=== PATIENT | male | born 1990 | race Caucasian/White ===

== ENCOUNTER 2018-10-12 08:00 | Inpatient (IN) | payer OTHER ==
[~2018-10-12] VITALS: Ht 175.3 cm; Wt 81.6 kg
[2018-10-15] MEDS ORDERED: PROPOFOL 50 ML ONE ×2 (08:46→11:45)
[2018-10-15] MEDS ORDERED: MIDAZOLAM 1 MG/ML, 2ML ONE (08:46)
[2018-10-15] MEDS ORDERED: FENTANYL PF 250 MCG/5ML ONE (08:46)
[2018-10-15] MEDS ORDERED: GABAPENTIN 300 MG CAPSULE PO ONE ×2 (09:30→10:00)
[2018-10-15] MEDS ORDERED: ACETAMINOPHEN 500 MG TABLET PO ONE (09:30)
[2018-10-15] MEDS ORDERED: LACTATED RINGERS 1,000 ML IV SCH (10:00)
[2018-10-15] MEDS ORDERED: LIDOCAINE-MPF 1%, 2ML INFIL ONE (10:00)
[2018-10-15] MEDS ORDERED: PLEASE ENTER HEIGHT AND WEIGHT MC SCH (10:00)
[2018-10-15] MEDS ORDERED: PLEASE ENTER ALLERGIES MC SCH (10:00)
[2018-10-15] MEDS ORDERED: MUPI22OI2 NAS (10:23)
[2018-10-15] MEDS ORDERED: GABA300C10 PO (10:23)
[2018-10-15] MEDS ORDERED: INSULIN PUMP SQ (10:23)
[2018-10-15] MEDS ORDERED: DIVA500T2 PO ×2 (10:23)
[2018-10-15 10:32] VITALS: BP 140/97
[2018-10-15] MEDS ORDERED: LORazepam 2 MG/ML, 1ML IVPush PRN (11:00)
[2018-10-15] MEDS ORDERED: MEPERIDINE/PF 25MG/0.5ML IVPush PRN (11:00)
[2018-10-15] MEDS ORDERED: HYDROmorphone 2 MG/ML, 1ML IVPush PRN (11:00)
[2018-10-15] MEDS ORDERED: METOCLOPRAMIDE 5 MG/ML, 2ML IV PRN (11:00)
[2018-10-15] MEDS ORDERED: OXYcodone 5 MG/5 ML ORAL.SOL UDC PO PRN (11:00)
[2018-10-15] MEDS ORDERED: NOVALOG INSULIN PUMP SQ-INSULIN (11:03)
[2018-10-15] MEDS ORDERED: KETAMINE 10 MG/ML, 20ML ONE (11:12)
[2018-10-15] MEDS ORDERED: CEFAZOLIN 1,000 MG ONE (11:12)
[2018-10-15] MEDS ORDERED: ONDANSETRON 2MG/ML, 2ML ONE (11:12)
[2018-10-15] MEDS ORDERED: SUCCINYLCHOLINE 20 MG/ML, 10ML ONE (11:12)
[2018-10-15] MEDS ORDERED: VANCOMYCIN 1,000 MG ONE (12:18)
[2018-10-15] MEDS ORDERED: EPINEPHRINE 1 MG/ML, 1ML ONE (12:18)
[2018-10-15] MEDS ORDERED: LIDOCAINE/PF 0.5% ,50ML ONE (12:18)
[2018-10-15] MEDS ORDERED: BUPIVACAINE/PF 0.25% ONE (12:18)
[2018-10-15] MEDS ORDERED: THROMBIN 5,000 UNIT VIAL TP ONE (12:18)
[2018-10-15] MEDS ORDERED: VANCOMYCIN 500 MG ONE (12:18)
[2018-10-15] MEDS: FENTANYL PF 100 MCG/2ML IV PRN ×2 (13:16→13:40)
[2018-10-15] MEDS ORDERED: FENTANYL PF 100 MCG/2ML ONE (13:18)
[2018-10-15] MEDS ORDERED: OXYcodone 5 MG/5 ML ORAL.SOL UDC ONE (13:18)
[2018-10-15] MEDS ORDERED: METHOCARBAMOL 1,000 MG in DEXTROSE 5% 100 ML IV ONE (13:30)
[2018-10-15] MEDS ORDERED: MEPERIDINE/PF 25MG/ML,1ML ONE (14:11)
[2018-10-15] MEDS ORDERED: DIPHENHYDRAMINE 50 MG CAPSULE PO PRN (15:30)
[2018-10-15] MEDS ORDERED: ONDANSETRON 2MG/ML, 2ML IV PRN (15:30)
[2018-10-15] MEDS ORDERED: METHOCARBAMOL 750 MG TABLET PO SCH (15:30)
[2018-10-15] MEDS ORDERED: DIPHENHYDRAMINE 50 MG/ML, 1ML IVPush PRN (15:30)
[2018-10-15] MEDS ORDERED: MAGNESIUM HYDROXIDE 8%, 30ML UDC PO PRN (15:30)
[2018-10-15] MEDS ORDERED: BISACODYL 10 MG SUPP PR PRN (15:30)
[2018-10-15] MEDS ORDERED: METHOCARBAMOL 750 MG TABLET PO PRN (15:30)
[2018-10-15] MEDS ORDERED: morphine SULFATE 10 MG/ML, 1ML IV PRN (15:30)
[2018-10-15] MEDS ORDERED: DIPHENHYDRAMINE 50 MG/ML, 1ML IM PRN (15:30)
[2018-10-15] MEDS ORDERED: PROMETHAZINE 25 MG/ML, 1ML IM PRN (15:30)
[2018-10-15] MEDS ORDERED: HYDROcodone/APAP 5/325 TABLET PO PRN (15:30)
[2018-10-15] MEDS ORDERED: DEXTROSE 4 GM TAB.CHEW PO PRN (16:00)
[2018-10-15] MEDS ORDERED: GLUCAGON 1 MG IM PRN (16:00)
[2018-10-15] MEDS ORDERED: DIVALPROEX SODIUM 1000 MG PO SCH (16:00)
[2018-10-15] MEDS ORDERED: PHARMACY INSTRUCTION MC PRN (16:00)
[2018-10-15] MEDS ORDERED: DEXTROSE 50%, 50ML SYRINGE IVPush PRN (16:00)
[2018-10-15] MEDS ORDERED: NOVALOG INSULIN PUMP SQ-INSULIN SCH (16:00)
[2018-10-15] MEDS: NS + 20MEQ KCL 1,000 ML IV SCH (18:24)
[2018-10-15] MEDS: CEFAZOLIN PMX 1GM/50ML 50 ML IVPB SCH (19:33)
[2018-10-15] MEDS: HYDROcodone/APAP 10/325 MG TABLET PO PRN ×2 (19:40→23:32)
[2018-10-15 20:07] VITALS: BP 137/92
[2018-10-15] MEDS: METHOCARBAMOL 750 MG in DEXTROSE 5% 100 ML IV SCH (20:59)
[2018-10-15] MEDS: SODIUM CHLORIDE FLUSH 10ML SYR IVF SCH (21:00)
[2018-10-15] MEDS ORDERED: DIVALPROEX SODIUM 1500 MG PO SCH (21:00)
[2018-10-15] MEDS ORDERED: GABAPENTIN 300 MG CAPSULE PO SCH (21:00)
[2018-10-15] MEDS ORDERED: TEMPLATE NON-FORMULARY MED. (Gabapentin** 600 MG) PO SCH (21:00)
[2018-10-15] MEDS ORDERED: DIVALPROEX 500 MG TABLET.DR HOMEMEDPO SCH (21:00)
[2018-10-15] MEDS: SENNA/DOCUSATE TABLET PO SCH (21:04)
[2018-10-15 23:34] VITALS: BP 139/95
[2018-10-16 01:58] VITALS: BP 151/105
[2018-10-16] MEDS: CEFAZOLIN PMX 1GM/50ML 50 ML IVPB SCH (03:38)
[2018-10-16] MEDS: HYDROcodone/APAP 10/325 MG TABLET PO PRN (03:38)
[2018-10-16 05:05] LABS: BASOPHILS # (AUTO) 0.02 x10^3/uL (0-0.1); BASOPHILS % (AUTO) 0 % (0-1); EOSINOPHILS # (AUTO) 0.07 x10^3/uL (0-0.4); EOSINOPHILS % (AUTO) 1 % (1-7); LYMPHOCYTES # (AUTO) 1.71 x10^3/uL (1-3.4); LYMPHOCYTES % (AUTO) 17 % (22-44); MD NO; MEAN CORPUSCULAR HEMOGLOBIN 29.7 pg (27.5-34.5); MEAN CORPUSCULAR HGB CONC 34.2 g/dL (33.2-36.2); MEAN CORPUSCULAR VOLUME 86.8 fL (81-97); MEAN PLATELET VOLUME 8.5 fL (7.4-10.4); MONOCYTES # (AUTO) 0.91 x10^3/uL (0.2-0.8); MONOCYTES % (AUTO) 9 % (2-9); NEUTROPHILS # (AUTO) 7.53 x10^3/uL (1.8-6.8); NEUTROPHILS % (AUTO) 74 % (42-75); PLATELET COUNT 172 x10^3/uL (130-400); RED BLOOD COUNT 3.74 x10^6/uL (4.38-5.82); RED CELL DISTRIBUTION WIDTH 14.5 % (9.4-14.8)
[2018-10-16 05:16] LABS: ALBUMIN 2.2 g/dL (3.4-5.0); ANION GAP 5 mmol/L (5-15); CALCIUM 8.2 mg/dL (8.5-10.1); CHLORIDE 108 mmol/L (98-107)
[2018-10-16 05:19] LABS: ALANINE AMINOTRANSFERASE 13 U/L (12-78); ALKALINE PHOSPHATASE 61 U/L (45-117); BILIRUBIN,TOTAL 0.3 mg/dL (0.2-1.0); CREATININE 0.82 mg/dL (0.7-1.3); TOTAL PROTEIN 5.6 g/dL (6.4-8.2)
[2018-10-16] MEDS: METHOCARBAMOL 750 MG in DEXTROSE 5% 100 ML IV SCH ×2 (05:29→13:07)
[2018-10-16] MEDS: NS + 20MEQ KCL 1,000 ML IV SCH ×2 (05:29→11:37)
[2018-10-16 08:06] VITALS: BP 125/88
[2018-10-16] MEDS: SENNA/DOCUSATE TABLET PO SCH (08:41)
[2018-10-16] MEDS: SODIUM CHLORIDE FLUSH 10ML SYR IVF SCH (08:41)
[2018-10-16] MEDS ORDERED: DIVALPROEX 500 MG TABLET.DR HOMEMEDPO SCH (09:00)
[2018-10-16 13:13] VITALS: BP 138/95
[2018-10-16] MEDS ORDERED: OXYcodone/APAP 10/325MG TABLET PO PRN (15:00)
[2018-10-16] MEDS ORDERED: OXYC-307 PO (16:21)
[2018-10-17] MEDS ORDERED: METHOCARBAMOL 750 MG TABLET PO SCH (22:00)
== END 2018-10-16 16:39 | disposition home or self-care (01) | DRG 473 ==
LOC: ORIP 10-15 09:11 → 4NOR 10-15 14:30 → DCLOUNGE 10-16 16:15
PROVIDERS: ADMIT Orthopaedic Surgery Orthopaedic Surgery of the Spine; ATTEND Orthopaedic Surgery Orthopaedic Surgery of the Spine
PROC: 0RG10K0 Fusion of Cervical Vertebral Joint with Nonautologous Tissue Substitute, Anterior Approach, Anterior Column, Open Approach (ICD-10-PCS; 2018-10-15)
PROC: 4A11X4G Monitoring of Peripheral Nervous Electrical Activity, Intraoperative, External Approach (ICD-10-PCS; 2018-10-15)
PROC: 0RB30ZZ Excision of Cervical Vertebral Disc, Open Approach (ICD-10-PCS; principal; 2018-10-15 15:30)
DX: M50.123 Cervical disc disorder at C6-C7 level with radiculopathy (principal); E10.40 Type 1 diabetes mellitus with diabetic neuropathy, unspecified; E10.65 Type 1 diabetes mellitus with hyperglycemia; G40.909 Epilepsy, unspecified, not intractable, without status epilepticus; Z96.41 Presence of insulin pump (external) (internal); Z79.899 Other long term (current) drug therapy
CPT/HCPCS: 36415; 72040; 80053; 82962; 85025; C1713; G0378; J0171; J0690; J2001; J2175; J2250; J2405; J2704; J3010; J3370; J3480; J3490; C1762; J0330; J2800; J7120